=== PATIENT | male | born 1990 | race African-American/Black ===

== ENCOUNTER 2022-12-16 01:55 | Emergency (ER) | payer MEDICAID, OTHER ==
[~2022-12-16] VITALS: Ht 190.5 cm; Wt 134.0 kg
[2022-12-16 02:01] VITALS: O2SAT 100
[2022-12-16] MEDS ORDERED: IBUPROFEN 600MG TABLET PO STA (03:37)
[2022-12-16] MEDS ORDERED: IBUP-2029 MT (05:38)
[2022-12-16] MEDS ORDERED: GABA300C MT (05:38)
[2022-12-16 06:02] VITALS: BP 139/79; PULSE 87; RESP 14; TEMP 98
== END 2022-12-16 06:04 | disposition home or self-care (01) ==
LOC: ER 02:41
DX: M79.2 Neuralgia and neuritis, unspecified (principal)
CPT/HCPCS: 99284